=== PATIENT | female | born 1975 | race Caucasian/White ===

== ENCOUNTER 2018-12-20 12:29 | Inpatient (IN) | payer MEDICAID ==
[~2018-12-20] VITALS: Ht 172.7 cm; Wt 95.3 kg
[2018-12-20] MEDS ORDERED: MUCINEX600 MG PO (12:35)
[2018-12-20] MEDS ORDERED: TAMIFLU75 MG PO (12:35)
[2018-12-20 14:00] LABS: HEMATOCRIT 34.8 % (36.0-48.0); HEMOGLOBIN 12.3 g/dL (12-16); MCH 31.7 pg (26.0-34.0); MCHC 35.3 g/dL (31.0-37.0); MCV 89.7 fL (80.0-100.0); MEAN PLATELET VOLUME 9.7 fL (7.4-10.4); PLATELET COUNT 342 10x3/uL (130-400); RBC 3.88 10x6/uL (4.00-5.40); RDW 14.2 % (11.5-14.5); WBC 23.7 10x3/uL (4.8-10.8)
[2018-12-20 14:25] LABS: ALBUMIN 2.6 g/dL (3.4-5.0); ALKALINE PHOSPHATASE 79 U/L (46-116); ALT (SGPT) 26 U/L (10-68); BILIRUBIN - TOTAL 0.25 mg/dL (0.2-1.3); CALC OSMOLALITY 269 mosm/kg (275-300); CALCIUM 8.7 mg/dL (8.5-10.1); CARBON DIOXIDE 22.9 mmol/L (21.0-32.0); CHLORIDE - SERUM 99 mmol/L (98-107); CREATININE - SERUM 0.7 mg/dL (0.6-1.3); GLUCOSE 150 mg/dL (74-106); POTASSIUM - SERUM 3.4 mmol/L (3.5-5.1); PROTEIN - SERUM 6.9 g/dL (6.4-8.2); SODIUM 134 mmol/L (136-145); UREA NITROGEN 10 mg/dL (7-18); eGFR NON AFRICAN AMERICAN > 90 mL/min (90-120)
[2018-12-20 15:11] LABS: LYMPHOCYTES 14 % (15-50); MONOCYTES 2 % (2-11); NEUTROPHILS 84 % (40-80); PLATELET ESTIMATE NORMAL; TEAR DROP CELLS OCC
[2018-12-20 15:12] LABS: ROULEAUX 1+
[2018-12-20 16:54] LABS: UDS - AMPHET NEGATIVE QUAL (NEGATIVE); UDS - BARB NEGATIVE QUAL (NEGATIVE); UDS - BENZO NEGATIVE QUAL (NEGATIVE); UDS - COCAINE NEGATIVE QUAL (NEGATIVE); UDS - OPIATE NEGATIVE QUAL (NEGATIVE); UDS - PCP NEGATIVE QUAL (NEGATIVE); UDS - THC POSITIVE QUAL (NEGATIVE)
[2018-12-20 17:11] LABS: APPEARANCE CLEAR (CLEAR); BILIRUBIN NEGATIVE (NEGATIVE); COLOR YELLOW (YELLOW); GLUCOSE NEGATIVE (NEGATIVE); KETONE NEGATIVE (NEGATIVE); NITRITE NEGATIVE (NEGATIVE); PROTEIN TRACE mg/dL (NEGATIVE); UROBILINOGEN NORMAL (NORMAL)
[2018-12-20 17:12] LABS: BACTERIA FEW /hpf (NONE SEEN); RED CELLS - URINE RARE /hpf (0-5); WHITE CELLS - URINE 0-5 /hpf (0-5)
[2018-12-20 18:29] VITALS: BP 126/58; BMI 32.0
--- NOTE | 2018-12-20 19:07 | NUR ---
INTRODUCED SELF TO PATIENT, PATIENT COMPLAINING OF HEADACHE. GAVE TYLENOL. NO FURTHER NEEDS.
[2018-12-20 20:00] VITALS: BP 123/62
[2018-12-21 00:10] VITALS: BP 118/46
[2018-12-21 04:00] VITALS: BP 119/70
[2018-12-21 08:42] VITALS: BP 133/72
[2018-12-21 10:06] LABS: ALBUMIN 2.6 g/dL (3.4-5.0); ALKALINE PHOSPHATASE 85 U/L (46-116); ALT (SGPT) 32 U/L (10-68); BILIRUBIN - TOTAL 0.11 mg/dL (0.2-1.3); CALC OSMOLALITY 284 mosm/kg (275-300); CALCIUM 8.7 mg/dL (8.5-10.1); CARBON DIOXIDE 21.6 mmol/L (21.0-32.0); CHLORIDE - SERUM 105 mmol/L (98-107); CREATININE - SERUM 0.8 mg/dL (0.6-1.3); POTASSIUM - SERUM 3.3 mmol/L (3.5-5.1); PROTEIN - SERUM 6.9 g/dL (6.4-8.2); SODIUM 140 mmol/L (136-145); UREA NITROGEN 9 mg/dL (7-18); eGFR NON AFRICAN AMERICAN 83 mL/min (90-120)
[2018-12-21 10:07] LABS: GLUCOSE 219 mg/dL (74-106)
[2018-12-21 10:09] LABS: HEMATOCRIT 34.1 % (36.0-48.0); HEMOGLOBIN 11.9 g/dL (12-16); LYMPHOCYTES 6.4 % (15-50); MCH 31.4 pg (26.0-34.0); MCHC 34.9 g/dL (31.0-37.0); MEAN PLATELET VOLUME 9.2 fL (7.4-10.4); NEUTROPHILS 87.7 % (40-80); PLATELET COUNT 435 10x3/uL (130-400); RBC 3.79 10x6/uL (4.00-5.40); RDW 14.5 % (11.5-14.5); WBC 26.4 10x3/uL (4.8-10.8)
--- NOTE | 2018-12-21 10:16 | NUR ---
PATIENT IS ALERT/ORIENT. OXYGEN ON AT 3L PER N/C. REFUSING SCD'S UP DEB TO BATHROOM. VOICES NO NEEDS AT THIS TIME. WILL CONTINUE WITH PLAN OF CARE
--- NOTE | 2018-12-21 11:34 | NUR ---
PATIENT PLACED IN DROPLET ISOLATION
[2018-12-21 12:00] VITALS: BP 133/67
--- NOTE | 2018-12-21 12:10 | NUR ---
DR SIMS INTO SEE PATIENT. NEW ORDERS RECEIVED
[2018-12-21 13:35] VITALS: BMI 31.9
--- NOTE | 2018-12-21 15:00 | NUR ---
PER JULIA CONNER PT NEEDS TO BE ON DROPLET ISOLATION FOR FLU. THIS RN AGREES WITH LPNS ASESSMENT.
[2018-12-21 17:19] VITALS: BP 135/76
--- NOTE | 2018-12-21 17:33 | MORECARE ---
CASE MANAGEMENT DISCHARGE SUMMARY PATIENT: RAFAELA HUANG UNIT: [id number] ADM DATE: 12/20/18 AGE: 43 : 75 SEX: F ROOM/BED: D.1208 AUTHOR: JOSE,DOC PHYSICIAN: REFERRING PHYSICIAN: LANDON RAMIREZ MD DATE OF SERVICE: 12/21/18 Discharge Plan Patient Name: RAFAELA HUANG Facility: [facility]:[place] : 1975 Planned Disposition: Home Anticipated Discharge Date: Discharge Date: Expected LOS: Initial Reviewer: [id number] Initial Review Date: 12/20/2018 Generated: 12/21/18 6:33 pm Comments DCP- Discharge Planning Updated by [email or web address]: Tia Malik on 12/21/18 4:[address] Patient Name: RAFAELA HUANG Admission Status: ER Accout number: [id number] Admission Date: 12-20-2018 : 1975 Admission Diagnosis:SHORTNESS OF BREATH Attending: LANDON RAMIREZ Current LOS: 1 Anticipated DC Date: Planned Disposition: Primary Insurance: [place] PR[place] [employer]IONS [place] Discharge Planning Comments: PATIENT PLANS TO RETURN TO HOME AT DISCHARGE. SHE RECENTLY RELOCATED TO [address] [place] [address] IN [place], CONTACT PHONE NUMBER UNCHANGED. SHE HAS 3 STEPS TO ENTER HER HOME W/ NO RAIL. HER SISTER WILL BE STAYING WITH HER POST DISCHARGE TO HELP. SHE DOES UTILIZE ANY COMMUNITY OR HOME HEALTH SERVICES. SHE IS INDEPENDENT IN HER CARE. DENIES ANY NEEDS. HER SISTER WILL PROVIDE TRANSPORTATION TO HOME. PCP- DR LINDER PHARMACY- [facility] ADVISED HER THAT CASE MANGEMENT IS AVAILABLE TO ASSIST IF NEEDED. Tuckpointer Cleaner Caulker: Tia Malik DCPIA - Discharge Planning Initial Assessment Updated by [id number]: Tia Malik on 12/21/18 5:32 pm * Is the patient Alert and Oriented? Yes * How many steps to enter\exit or inside your home? three * PCP DR LINDER * [facility] * Preadmission Environment Home Alone * ADLs Independent * Equipment None * Other Equipment N/A * List name and contact numbers for known caregivers / representatives who currently or will assist patient after discharge: KDMATTHIAS BURROWS- [facility] [phone] * Verbal permission to speak to the caregivers and representatives has been obtained from the patient. No * Community resources currently utilized None * Additional services required to return to the preadmission environment? No * Can the patient safely return to the preadmission environment? Yes * Has this patient been hospitalized within the prior 30 days at any hospital? No Patient Name: RAFAELA HUANG Page [id number] at 1733 All edits/amendments must be made on the electronic document DICTATION DATE: 12/21/181731 MEATMAN: OWN 12/21/181731 RPT#: [id number] DC DATE: STATUS: ADM IN [facility] [address] [place] [address] END OF REPORT
--- NOTE | 2018-12-21 17:40 | MORECARE ---
CASE MANAGEMENT DISCHARGE SUMMARY PATIENT: RAFAELA HUANG UNIT: [id number] ADM DATE: 12/20/18 AGE: 43 : 75 SEX: F ROOM/BED: D.1208 AUTHOR: JOSE,DOC PHYSICIAN: REFERRING PHYSICIAN: LANDON RAMIREZ MD DATE OF SERVICE: 12/21/18 Discharge Plan Patient Name: RAFAELA HUANG Facility: [facility]:[place] : 1975 Planned Disposition: Home Anticipated Discharge Date: Discharge Date: Expected LOS: Initial Reviewer: [email or web address] Initial Review Date: 12/20/2018 Generated: 12/21/18 6:39 pm Comments DCP- Discharge Planning Updated by [id number]: Tia Malik on 12/21/18 4:[address] EMERGENCY CONTACT IS NOT HER MOTHER , ALIZA AMOS. SHE IS . FAXED CORRECTIONS TO ER REGISTRATION. ADDRESS CHANGED - [address] [place] [address] EMERGENCY CONTACT- SISTER- KD BURROWS- [phone] DCP- Discharge Planning Updated by [email or web address]: Tia Malik on 12/21/18 4:[address] Patient Name: RAFAELA HUANG Admission Status: ER Accout number: [id number] Admission Date: 12-20-2018 : 1975 Admission Diagnosis:SHORTNESS OF BREATH Attending: LANDON RAMIREZ Current LOS: 1 Anticipated DC Date: Planned Disposition: Primary Insurance: [place] PR[employer]IONS A[place] Discharge Planning Comments: PATIENT PLANS TO RETURN TO HOME AT DISCHARGE. SHE RECENTLY RELOCATED TO [address] [place] [address] IN [place], CONTACT PHONE NUMBER UNCHANGED. SHE HAS 3 STEPS TO ENTER HER HOME W/ NO RAIL. HER SISTER WILL BE STAYING WITH HER POST DISCHARGE TO HELP. SHE DOES UTILIZE ANY COMMUNITY OR HOME HEALTH SERVICES. SHE IS INDEPENDENT IN HER CARE. DENIES ANY NEEDS. HER SISTER WILL PROVIDE TRANSPORTATION TO HOME. PCP- DR LINDER PHARMACY- [facility] ADVISED HER THAT CASE MANGEMENT IS AVAILABLE TO ASSIST IF NEEDED. Operator Catalyst Concentration: Tia Malik DCPIA - Discharge Planning Initial Assessment Updated by [id number]: Tia Malik on 12/21/18 5:32 pm * Is the patient Alert and Oriented? Yes * How many steps to enter\exit or inside your home? three * PCP DR LINDER * [facility] * Preadmission Environment Home Alone * ADLs Independent * Equipment None * Other Equipment N/A * List name and contact numbers for known caregivers / representatives who currently or will assist patient after discharge: KD BURROWS- [facility]- [phone] * Verbal permission to speak to the caregivers and representatives has been obtained from the patient. No * Community resources currently utilized None * Additional services required to return to the preadmission environment? No * Can the patient safely return to the preadmission environment? Yes * Has this patient been hospitalized within the prior 30 days at any hospital? No Last DP export: 12/21/18 4:33 pm Patient Name: RAFAELA HUANG Page [id number] at 1740 All edits/amendments must be made on the electronic document DICTATION DATE: 12/21/181738 BI REPORT DEVELOPER: WON 12/21/181738 RPT#: [id number] DC DATE: STATUS: ADM IN [facility] [address] [place] [address] END OF REPORT
--- NOTE | 2018-12-21 19:51 | NUR ---
THE PATIENT WAS LYING IN BED WHEN STAFF ENTERED HER ROOM. BED IS IN TH ELOW POSITION WITH SIDERAILS X2 AND CALL LIGHT WITHIN REACH. THE PATIENT WAS EDUCATED ON, AND DEMONSTARTED THE USE OF A CALL LIGHT. THE PATIENT APPEARS COMFORTABLE WITH NO QUESTIONS OR CONCERNS AT THIS TIME.
[2018-12-21 21:02] VITALS: BP 126/73
[2018-12-22] VITALS: BP 122/60
--- NOTE | 2018-12-22 02:42 | NUR ---
THE PATIENT APPEARS TO BE SLEEPING. BED IS IN THE LOW POSITION WITH SIDERAILS X2 AND CALL LIGHT WITHIN REACH.
[2018-12-22 04:00] VITALS: BP 125/72
--- NOTE | 2018-12-22 07:20 | NUR ---
PT AAOX4 RESP EVEN AND NONLABORED, NO SIGNS OF DISTRESS NOTED, REQUESTING A CUP OF WATER BROUGHT TO PT AT THIS TIME CL IN REACH
[2018-12-22 07:54] VITALS: BP 128/49
[2018-12-22 12:23] VITALS: BP 137/75
--- NOTE | 2018-12-22 19:22 | NUR ---
THE PATIENT WAS LYING IN BED AND WATCHING TELEVISION WHEN STAFF ENTERED HER ROOM. BED IS IN THE LOW POSITION WITH SIDERAILS X2 AND CALL IGHT WITHIN REACH. THE PATIENT WAS EDUCATED ON THE NEED TO ASK FOR ASSISTANCE WITH ANY ADLS THAT SHE IS NOT COMFORTABLE PERFORMING. THE PATIENT DEMONSTRATES UNDERSTANDING VIA TEACHBACK METHOD. THE PATIENT APPEARS COMFORTABLE WITH NO QUESTIONS OR CONCERNS AT THIS TIME.
[2018-12-22 20:00] VITALS: BP 132/68; BP 136/45
[2018-12-23] VITALS: BP 115/80
--- NOTE | 2018-12-23 02:20 | NUR ---
THE PATIENT APPEARS TO BE SLEEPING COMFORTABLY WITH BED IN THE LOW POSITION AND CALL LIGHT WITHIN REACH.
[2018-12-23 04:30] VITALS: BP 127/76
[2018-12-23 09:25] VITALS: BP 122/59
[2018-12-23 12:46] VITALS: BP 119/74
--- NOTE | 2018-12-23 14:58 | NUR ---
Nutrition Follow Up: Regular diet with 100% intake of meals today Reviewed labs and BG 150, 219 with no hx of DM. Pt reports she is acitve and follows a healthy diet at home Spoke with nursing and recommend to check a HgbA1c RD following
[2018-12-23 16:23] VITALS: BP 139/79
--- NOTE | 2018-12-23 19:10 | NUR ---
PATIENT LAYING IN BED, NO DISTRESS NOTED. NO COMPLAINTS AT THIS TIME.
[2018-12-23 20:00] VITALS: BP 136/72
[2018-12-24] VITALS: BP 143/74
--- NOTE | 2018-12-24 02:16 | NUR ---
I have reviewed this patient and I concur with the Shift Assessment completed by the Licensed Practical Nurse today this shift.
[2018-12-24 04:00] VITALS: BP 148/49
[2018-12-24 07:20] LABS: BASOPHILS 0.2 % (0-2); EOSINOPHILS 0.1 % (0-7); HEMATOCRIT 38.5 % (36.0-48.0); HEMOGLOBIN 13.3 g/dL (12-16); IMMATURE GRANULOCYTES 3.5 % (0-5); LYMPHOCYTES 9.1 % (15-50); MCH 30.6 pg (26.0-34.0); MCHC 34.5 g/dL (31.0-37.0); MCV 88.5 fL (80.0-100.0); MEAN PLATELET VOLUME 9.3 fL (7.4-10.4); MONOCYTES 3.5 % (2-11); NEUTROPHILS 83.6 % (40-80); PLATELET COUNT 498 10x3/uL (130-400); RBC 4.35 10x6/uL (4.00-5.40); RDW 14.1 % (11.5-14.5); WBC 18.9 10x3/uL (4.8-10.8)
--- NOTE | 2018-12-24 07:20 | NUR ---
RESTING QUIETLY IN BED. DENIES ANY NEEDS AT THIS TIME.
--- NOTE | 2018-12-24 07:35 | NUR ---
ASSESSMENT COMPLETE. SL TO R HAND. NONPRODUCTIVE COUGH. DENIES ANY NEEDS AT THIS TIME.
[2018-12-24 08:18] VITALS: BP 134/92
[2018-12-24 12:24] VITALS: BP 145/75
--- NOTE | 2018-12-24 13:30 | NUR ---
IV TO RIGHT THUMB AREA WITH SWELLING NOTED. IV RESITED TO L FA WITH 22 GUAGE BY MARIA FERNANDA SCHRADER RN. DENIES ANY NEEDS AT THIS TIME.
--- NOTE | 2018-12-24 18:00 | NUR ---
VISITING WITH FAMILY. DENIES ANY NEEDS AT THIS TIME.
--- NOTE | 2018-12-24 19:20 | NUR ---
PATIENT LAYING IN BED AT THIS TIME. FAMILY AT BEDSIDE. NO COMPLAINTS. NO DISTRESS NOTED.
[2018-12-24 19:48] VITALS: BP 145/59
[2018-12-24 23:43] VITALS: BP 114/62
--- NOTE | 2018-12-25 00:30 | NUR ---
PATIENT LAYING IN BED. NO DISTRESS NOTED. NO COMPLAINTS AT THIS TIME.
--- NOTE | 2018-12-25 01:41 | NUR ---
I have reviewed this patient and I concur with the Shift Assessment completed by the Licensed Practical Nurse today this shift.
[2018-12-25 04:00] VITALS: BP 157/87
[2018-12-25 05:22] LABS: CALC OSMOLALITY 284 mosm/kg (275-300); CALCIUM 9.1 mg/dL (8.5-10.1); CARBON DIOXIDE 25.9 mmol/L (21.0-32.0); CHLORIDE - SERUM 104 mmol/L (98-107); CREATININE - SERUM 0.8 mg/dL (0.6-1.3); GLUCOSE 217 mg/dL (74-106); POTASSIUM - SERUM 4.4 mmol/L (3.5-5.1); SODIUM 138 mmol/L (136-145); UREA NITROGEN 17 mg/dL (7-18); eGFR NON AFRICAN AMERICAN 83 mL/min (90-120)
[2018-12-25 05:23] LABS: HEMATOCRIT 34.2 % (36.0-48.0); HEMOGLOBIN 11.8 g/dL (12-16); MCH 31.5 pg (26.0-34.0); MCHC 34.5 g/dL (31.0-37.0); MCV 91.2 fL (80.0-100.0); MEAN PLATELET VOLUME 8.8 fL (7.4-10.4); PLATELET COUNT 611 10x3/uL (130-400); RBC 3.75 10x6/uL (4.00-5.40); RDW 14.3 % (11.5-14.5); WBC 32.1 10x3/uL (4.8-10.8)
[2018-12-25 05:54] LABS: EOSINOPHILS 1 % (0-7); LYMPHOCYTES 6 % (15-50); MONOCYTES 4 % (2-11); NEUTROPHILS 78 % (40-80); PLATELET ESTIMATE INCREASED
--- NOTE | 2018-12-25 07:58 | NUR ---
PATIENT SITTING UP IN BED. NO COMPLAINTS OR SIGNS OF DISTRESS. ALL NEEDS MET AT THIS TIME.
[2018-12-25 07:59] VITALS: BP 134/82
[2018-12-25 12:11] VITALS: BP 153/94
[2018-12-25] MEDS ORDERED: OMNICEF300 MG PO (12:17)
[2018-12-25] MEDS ORDERED: VIBRAMYCIN 100100 MG PO (12:17)
[2018-12-25] MEDS ORDERED: IPRAT-ALBUT 0.5-3 ML INH (12:17)
[2018-12-25] MEDS ORDERED: ALBUTEROL2.5 MG/3 M INH (12:17)
[2018-12-25] MEDS ORDERED: PROMETHAZINE W473 ML PO (12:18)
[2018-12-25] MEDS ORDERED: SINGULAIR10 MG PO (12:18)
[2018-12-25] MEDS ORDERED: Tessalon Perle PO (12:18)
[2018-12-25] MEDS ORDERED: PREDNISONE20 MG PO (12:19)
[2018-12-25] MEDS ORDERED: SYMBICORT 80-10.2 GM INH (12:25)
--- NOTE | 2018-12-25 14:15 | NUR ---
THIS RN APPROVES OF THE MASSOTHERAPIST CHARTING. ASSISTED THE PT NEEDED.
--- NOTE | 2018-12-25 14:16 | MORECARE ---
CASE MANAGEMENT DISCHARGE SUMMARY PATIENT: RAFAELA HUANG UNIT: [id number] ADM DATE: 12/20/18 AGE: 43 : 75 SEX: F ROOM/BED: D.1208 AUTHOR: JOSE,DOC PHYSICIAN: REFERRING PHYSICIAN: LANDON RAMIREZ MD DATE OF SERVICE: 12/25/18 Discharge Plan Patient Name: RAFAELA HUANG Facility: [facility]:[place] : 1975 Planned Disposition: Home Anticipated Discharge Date: Discharge Date: Expected LOS: Initial Reviewer: [id number] Initial Review Date: 12/20/2018 Generated: 12/25/18 3:16 pm DCP- Discharge Planning Updated by [id number]: Tia Malik on 12/21/18 4:[address] EMERGENCY CONTACT IS NOT HER MOTHER , ALIZA AMOS. SHE IS . FAXED CORRECTIONS TO ER REGISTRATION. ADDRESS CHANGED - [address] [place] [address] EMERGENCY CONTACT- SISTERGera BURROWS- [phone] DCP- Discharge Planning Updated by [email or web address]: Tia Malik on 12/21/18 4:[address] Patient Name: RAFAELA HUANG Admission Status: ER Accout number: [id number] Admission Date: 12-20-2018 : 1975 Admission Diagnosis:SHORTNESS OF BREATH Attending: LANDON RAMIREZ Current LOS: 1 Anticipated DC Date: Planned Disposition: Primary Insurance: [place] PR[place] A[place] Discharge Planning Comments: PATIENT PLANS TO RETURN TO HOME AT DISCHARGE. SHE RECENTLY RELOCATED TO [address] [place] [address] IN [place], CONTACT PHONE NUMBER UNCHANGED. SHE HAS 3 STEPS TO ENTER HER HOME W/ NO RAIL. HER SISTER WILL BE STAYING WITH HER POST DISCHARGE TO HELP. SHE DOES UTILIZE ANY COMMUNITY OR HOME HEALTH SERVICES. SHE IS INDEPENDENT IN HER CARE. DENIES ANY NEEDS. HER SISTER WILL PROVIDE TRANSPORTATION TO HOME. PCP- DR LINDER PHARMACY- [facility] ADVISED HER THAT CASE MANGEMENT IS AVAILABLE TO ASSIST IF NEEDED. Principal Embedded Software Engineer: Tia Malik DCPIA - Discharge Planning Initial Assessment Updated by [email or web address]: Tia Malik on 12/21/18 5:32 pm * Is the patient Alert and Oriented? Yes * How many steps to enter\exit or inside your home? three * PCP DR LINDER * [facility] * Preadmission Environment Home Alone * ADLs Independent * Equipment None * Other Equipment N/A * List name and contact numbers for known caregivers / representatives who currently or will assist patient after discharge: KD BURROWS- - [phone] * Verbal permission to speak to the caregivers and representatives has been obtained from the patient. No * Community resources currently utilized None * Additional services required to return to the preadmission environment? No * Can the patient safely return to the preadmission environment? Yes * Has this patient been hospitalized within the prior 30 days at any hospital? No External Providers External Provider: [facility] Contact Date: Service Request Date: Service Type: Resolution: Reviewer: Comments: Last DP export: 12/21/18 4:40 pm Patient Name: RAFAELA HUANG Page [id number] at 1416 All edits/amendments must be made on the electronic document DICTATION DATE: 12/25/18 1416 MEDICAL CLERICAL ASSISTANT: WON 12/25/18 1416 RPT#: [id number] DC DATE: STATUS: ADM IN [facility] [address] [place] [address] END OF REPORT
[2018-12-25 14:56] VITALS: Ht 172.7 cm; Wt 95.3 kg
[2018-12-25] MEDS ORDERED: GUAIFENESI100 MG/5 M PO (15:11)
--- NOTE | 2018-12-25 15:38 | NUR ---
PIV REMOVED, TIP INTACT.
--- NOTE | 2018-12-25 16:17 | NUR ---
DISCUSSED DISCHARGE INSTRUCTIONS, MEDICATION AND FOLLOW-UP WITH PATIENT. ALL BELONGINGS SENT WITH PATIENT. DISCHARGED HOME VIA WHEELCHAIR ACCOMPANIED BY FAMILY.
--- NOTE | 2018-12-25 17:29 | MORECARE ---
CASE MANAGEMENT DISCHARGE SUMMARY PATIENT: RAFAELA HUANG UNIT: [id number] ADM DATE: 12/20/18 AGE: 43 : 75 SEX: F ROOM/BED: D.1208 AUTHOR: JOSE,DOC PHYSICIAN: REFERRING PHYSICIAN: LANDON RAMIREZ MD DATE OF SERVICE: 12/25/18 Discharge Plan Patient Name: RAFAELA HUANG Facility: [facility]:[place] : 1975 Planned Disposition: Home Anticipated Discharge Date: Discharge Date: Expected LOS: Initial Reviewer: [id number] Initial Review Date: 12/20/2018 Generated: 12/25/18 6:29 pm Comments DCP- Discharge Planning Updated by [email or web address]: Mikaela Vieira on 12/25/18 4:[address] Late entry for 13:05 CM obtained order for walk test to see if patient needs home O2. Notified RT, Saw, of order. CM also notified by Dr. Ruiz patient needs nebulizer. CM informed by RT that patient did not qualify for home O2. CM met with patient. Patient choice [facility] [place] [facility] for DME. Patient also express interest in participating in "[employer]". Requested assistance with patches to help her quit smoking. CM provided patient with application for [employer] patient assistance progam. Instructed her to complete application and when she is finished to give it to the nurse who will fax it. CM notified patient's nurse of this. CM called [facility] about referral for Nebulizer. CM completed appropriate paper work, obtained Dr. Ruiz's signature and faxed forms to [facility] with records as requested. Nebulizer will be delivered to hospital prior to dc. DCP- Discharge Planning Updated by [id number]: Tia Malik on 12/21/18 4:[address] EMERGENCY CONTACT IS NOT HER MOTHER , MIKAELA AMOS. SHE IS . FAXED CORRECTIONS TO ER REGISTRATION. ADDRESS CHANGED - [address] [place] [address] EMERGENCY CONTACT- SISTER- KD BURROWS- [phone] DCP- Discharge Planning Updated by [email or web address]: Tia Malik on 12/21/18 4:[address] Patient Name: RAFAELA HUANG Admission Status: ER Accout number: [id number] Admission Date: 12-20-2018 : 1975 Admission Diagnosis:SHORTNESS OF BREATH Attending: LANDON RAMIREZ Current LOS: 1 Anticipated DC Date: Planned Disposition: Primary Insurance: [place] PRIVATE [place] A[place] Discharge Planning Comments: PATIENT PLANS TO RETURN TO HOME AT DISCHARGE. SHE RECENTLY RELOCATED TO [address] [place] [address] IN [place], CONTACT PHONE NUMBER UNCHANGED. SHE HAS 3 STEPS TO ENTER HER HOME W/ NO RAIL. HER SISTER WILL BE STAYING WITH HER POST DISCHARGE TO HELP. SHE DOES UTILIZE ANY COMMUNITY OR HOME HEALTH SERVICES. SHE IS INDEPENDENT IN HER CARE. DENIES ANY NEEDS. HER SISTER WILL PROVIDE TRANSPORTATION TO HOME. PCP- DR LINDER PHARMACY- [facility] ADVISED HER THAT CASE MANGEMENT IS AVAILABLE TO ASSIST IF NEEDED. Deliverer Pharmacy: Tia Malik DCPIA - Discharge Planning Initial Assessment Updated by [id number]: Tia Malik on 12/21/18 5:32 pm * Is the patient Alert and Oriented? Yes * How many steps to enter\\exit or inside your home? three * PCP DR LINDER * [facility] * Preadmission Environment Home Alone * ADLs Independent * Equipment None * Other Equipment N/A * List name and contact numbers for known caregivers / representatives who currently or will assist patient after discharge: KD BURROWS- SISTER- [phone] * Verbal permission to speak to the caregivers and representatives has been obtained from the patient. No * Community resources currently utilized None * Additional services required to return to the preadmission environment? No * Can the patient safely return to the preadmission environment? Yes * Has this patient been hospitalized within the prior 30 days at any hospital? No Last DP export: 12/25/18 1:16 pm Patient Name: RAFAELA HUANG Page [id number] at 1729 All edits/amendments must be made on the electronic document DICTATION DATE: 12/25/181727 HOB GRINDER: WON 12/25/181727 RPT#: [id number] DC DATE: STATUS: ADM IN [facility] [address] [place] [address] END OF REPORT
--- NOTE | 2018-12-25 18:01 | MORECARE ---
CASE MANAGEMENT DISCHARGE SUMMARY PATIENT: RAFAELA HUANG UNIT: [id number] ADM DATE: 12/20/18 AGE: 43 : 75 SEX: F ROOM/BED: D.1208 AUTHOR: JOSE,DOC PHYSICIAN: REFERRING PHYSICIAN: LANDON RAMIREZ MD DATE OF SERVICE: 12/25/18 Discharge Plan Patient Name: RAFAELA HUANG Facility: [facility]:[place] : 1975 Planned Disposition: Home Anticipated Discharge Date: Discharge Date: 12/25/2018 Expected LOS: Initial Reviewer: [id number] Initial Review Date: 12/20/2018 Generated: 12/25/18 7:01 pm Comments DCP- Discharge Planning Updated by [email or web address]: Mikaela Vieira on 12/25/18 4:[address] Late entry for 13:05 CM obtained order for walk test to see if patient needs home O2. Notified RT, Saw, of order. CM also notified by Dr. Ruiz patient needs nebulizer. CM informed by RT that patient did not qualify for home O2. CM met with patient. Patient choice [facility] [place] [facility] for DME. Patient also express interest in participating in "[employer]". Requested assistance with patches to help her quit smoking. CM provided patient with application for [employer] patient assistance progam. Instructed her to complete application and when she is finished to give it to the nurse who will fax it. CM notified patient's nurse of this. CM called [facility] about referral for Nebulizer. CM completed appropriate paper work, obtained Dr. Ruiz's signature and faxed forms to [facility] with records as requested. Nebulizer will be delivered to hospital prior to dc. DCP- Discharge Planning Updated by [id number]: Tia Malik on 12/21/18 4:[address] EMERGENCY CONTACT IS NOT HER MOTHER , MIKAELA AMOS. SHE IS . FAXED CORRECTIONS TO ER REGISTRATION. ADDRESS CHANGED - [address] [place] [address] EMERGENCY CONTACT- SISTER- KD BURROWS- [phone] DCP- Discharge Planning Updated by [id number]: Tia Malik on 12/21/18 4:[address] Patient Name: RAFAELA HUANG Admission Status: ER Accout number: [id number] Admission Date: 12-20-2018 : 1975 Admission Diagnosis:SHORTNESS OF BREATH Attending: LANDON RAMIREZ Current LOS: 1 Anticipated DC Date: Planned Disposition: Primary Insurance: [place] PRIVATE [place] A[place] Discharge Planning Comments: PATIENT PLANS TO RETURN TO HOME AT DISCHARGE. SHE RECENTLY RELOCATED TO [address] [place] [address] IN [place], CONTACT PHONE NUMBER UNCHANGED. SHE HAS 3 STEPS TO ENTER HER HOME W/ NO RAIL. HER SISTER WILL BE STAYING WITH HER POST DISCHARGE TO HELP. SHE DOES UTILIZE ANY COMMUNITY OR HOME HEALTH SERVICES. SHE IS INDEPENDENT IN HER CARE. DENIES ANY NEEDS. HER SISTER WILL PROVIDE TRANSPORTATION TO HOME. PCP- DR LINDER PHARMACY- [facility] ADVISED HER THAT CASE MANGEMENT IS AVAILABLE TO ASSIST IF NEEDED. Rn Clinical Documentation Specialist: Tia Malik DCPIA - Discharge Planning Initial Assessment Updated by [email or web address]: Tia Malik on 12/21/18 5:32 pm * Is the patient Alert and Oriented? Yes * How many steps to enter\\exit or inside your home? three * PCP DR LINDER * [facility] * Preadmission Environment Home Alone * ADLs Independent * Equipment None * Other Equipment N/A * List name and contact numbers for known caregivers / representatives who currently or will assist patient after discharge: KD BURROWS- SISTER- [phone] * Verbal permission to speak to the caregivers and representatives has been obtained from the patient. No * Community resources currently utilized None * Additional services required to return to the preadmission environment? No * Can the patient safely return to the preadmission environment? Yes * Has this patient been hospitalized within the prior 30 days at any hospital? No Coverage Notice Reviewer: [email or web address] Gera Vieira Notice Issued Date-Time: 12/25/2018 13:05 Notice Type: Patient Choice Letter Notice Delivered To: Patient Relationship to Patient: Self Warehouseman Name: Delivery Method: HAND - Hand Delivered [place] Days: Prior Verbal Notification: Recipient Understood Notice: Yes Recipient Signature: Yes Med Rec Note Co-signed by Attending: Coverage Notice Comment: Last DP export: 12/25/18 4:29 pm Patient Name: RAFAELA HUANG Page [id number] at 1801 All edits/amendments must be made on the electronic document DICTATION DATE: 12/25/181799 MALTED MILK MASHER: WON 12/25/18 1800 RPT#: [id number] DC DATE:12/25/18 STATUS: DIS IN [facility] [address] [place] [address] END OF REPORT
== END 2018-12-25 16:10 | disposition home or self-care (01) | DRG 177 ==
LOC: D.ER 12:29 → D.EDHOLD 15:03 → D.M3 15:03
PROVIDERS: Family Medicine; Internal Medicine Pulmonary Disease; ADMIT Internal Medicine Nephrology; ATTEND Internal Medicine Nephrology
DX: J10.08 Influenza due to other identified influenza virus with other specified pneumonia (principal); J96.01 Acute respiratory failure with hypoxia; J15.6 Pneumonia due to other Gram-negative bacteria; F17.213 Nicotine dependence, cigarettes, with withdrawal; J15.212 Pneumonia due to Methicillin resistant Staphylococcus aureus; E87.6 Hypokalemia; E66.9 Obesity, unspecified; Z68.32 Body mass index [BMI] 32.0-32.9, adult; D64.9 Anemia, unspecified; J44.1 Chronic obstructive pulmonary disease with (acute) exacerbation; J44.0 Chronic obstructive pulmonary disease with (acute) lower respiratory infection